=== PATIENT | female | born 1945 | race Caucasian/White ===

== ENCOUNTER 2017-03-27 11:57 | Inpatient (IN) | payer OTHER ==
[2017-03-23 08:44] LABS: HEMATOCRIT 32.3 % (36.0-48.0); HEMOGLOBIN 10.4 g/dL (12.0-16.0)
[2017-03-23 08:50] LABS: ASCORBIC ACID (UR NOT ORDER) NEG (NEG); BILIRUBIN, URINE NEGATIVE (NEG); KETONE, URINE NEGATIVE (NEG); LEUKOCYTE ESTERASE(NOT OR LARGE (NEG); WBC (NOT ORDERED) (RFLEX) > 182 (0-5)
[2017-03-23 09:02] LABS: BUN (BLOOD UREA NITROGEN) 28 MG/DL (6-23); CALCIUM, SERUM 8.6 MG/DL (8.5-10.4); CHLORIDE, SERUM 108 MMOL/L (96-112); CO2 (CARBON DIOXIDE) 29 MMOL/L (24-34); CREATININE 1.15 MG/DL (0.55-1.02); GFR AFRICAN AMERICAN 56 ML/MIN (>=60); GFR NON AFRICAN AMERICAN 49 ML/MIN (>=60); GLUCOSE, SERUM 81 MG/DL (60-99); SODIUM, SERUM 144 MMOL/L (135-148)
--- NOTE | ~2017-03-27 | DS ---
Discharge Summary [facility] [address] [place]. [address] NAME: JESSICA MARY : 49 STATUS : DIS IN PAT#: [id number] AGE: 71 ADM/REG DATE : 03/27/17 MR#: [id number] REPORT SERV DATE: 04/13/17 DICTATED BY: TY QUAN JR. DATE: 04/13/17 REPORT STATUS : Draft TRANSCRIBED BY: BRAN DATE: 04/13/17 Data Collection from hospitalization DISCHARGE DIAGNOSES: 1. Left renal pelvic stone, status post placement of PCN in the upper pole, partially obstructed collecting system. 2. Hypertension. 3. History of stage IV throat cancer. 4. Hiatal hernia. 5. Acid reflux. 6. Arthritis. 7. Former smoker. 8. Hypercholesterolemia. 9. Gastroesophageal reflux disease. 10.Sepsis of urinary origin. CONSULTATION: None. PROCEDURES PERFORMED: 1. Left renal access for PCN on 03/27/2017. 2. CT scan of the abdomen and pelvis without contrast on 03/29/2017. MEDICATIONS: Vitamin D 1000 units daily, Cipro 500 mg every 12 hours, vitamin B12 1000 mg daily, Prinzide one tablet daily, multivitamins one tablet daily, Prilosec 40 mg daily, Percocet 5/325 one to two tablets every four hours as needed, Pravachol 40 mg daily, and vitamin A one tablet daily. CONDITION AT DISCHARGE: Stable. DISPOSITION: The patient was discharged home on a regular diet with activities as instructed. She would follow up with me on 04/05/2017. HOSPITAL COURSE: This is a 71-year-old female who has a large left renal pelvis stone, this was incidentally found during a recent hospitalization. 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 She had completed radiation treatments. She has no known prior history of renal calculi. Urinalysis was positive for trace protein, large leukocyte, nitrite positive, and moderate blood. It was felt that the patient would need to undergo PCNL. She was admitted to the hospital at this time for further evaluation and treatment. Upon admission, the patient underwent the above-mentioned procedure. She tolerated this well, and there were no complications. The following day, her T-max was 101.5. She had no complaints. Her urine was bloody. Urine culture was positive. She had been started on Levaquin. On 03/29/2017, she had no new complaints except for some soreness in her back. White count had increased to 22.4. The patient was felt to have sepsis of urinary origin. She was transferred to the [facility]. A CT scan of the abdomen and pelvis without contrast was performed. Rocephin was added to her regimen. Vargas catheter was in place. She was started on electrolyte protocol. Discharge planning was performed. On 03/30/2017, she had Discharge Summary [facility] [id number] [place]. [address] NAME: JESSICA MARY : 49 STATUS : DIS IN PAT#: [id number] AGE: 71 ADM/REG DATE : 03/27/17 MR#: [id number] REPORT SERV DATE: 04/13/17 DICTATED BY: TY QUAN JR. DATE: 04/13/17 REPORT STATUS : Draft TRANSCRIBED BY: BRAN DATE: 04/13/17 no complaints. She was afebrile. She was off O2. Creatinine was 2.34. She was voiding without the Vargas catheter. Her CT scan had been negative. Plans were made for the patient to undergo PCN the following week. Discharge instructions were given. Due to her improved and stable condition, she was discharged home with the above-stated instructions. Information collected by: Lisa Hyatt I submit the above information as my discharge summary. JORDI/BRAN Ty Quan Jr., M.D. / [id number] CC: Noe Delatorre Jr., PAUL E
[~2017-03-27 11:57] MED LIST: ATV.5; CHEMO-THERAPY; COMP10B PO; CYANO1000T PO; DEX4 PO; FLUCON1 PO; LEVOTHYROXIN50 MCG PO; LOM PO; MAGIC MOUTHWASH PO; MULTIPLE VIT PO; MULTIVITAMI1 PO; NEXIUM40 PO; NORV10 PO; PRAVACHOL40 MG PO; PRILOSEC40 MG PO; PRINZIDE1 TA1 PO; VITAMIN A PO; VITAMIN D1000 UNI1 PO; ZESTORETIC PO; ZOFRAN8 PO
[2017-03-27 12:39] LABS: BASOPHILS 0.4 %; BASOPHILS ABSOLUTE 0.02 10/3/uL (0.0-0.16); EOSINOPHILS 1.4 %; EOSINOPHILS ABSOLUTE 0.07 10/3/uL (0.0-0.53); HEMOGLOBIN 11.6 g/dL (12.0-16.0); IMMATURE GRANULOCYTES 0.2 %; IMMATURE GRANULOCYTES ABSOLUTE 0.01 10/3/uL (0.0-0.11); LYMPHOCYTES 11.4 %; LYMPHOCYTES ABSOLUTE 0.56 10/3/uL (0.67-4.30); MEAN CORPUSCULAR HEMOGLOB 28.2 pg (26.0-34.0); MEAN CORPUSCULAR VOLUME 88.1 fL (80-100); MEAN PLATELET VOLUME 8.9 fL (9.2-13.0); MONOCYTES 6.5 %; MONOCYTES ABSOLUTE 0.32 10/3/uL (0.21-1.20); NEUTROPHILS 80.1 %; NEUTROPHILS ABSOLUTE 3.92 10/3/uL (2.02-8.40); PLATELET COUNT 157 10/3/uL (150-400); RED CELL COUNT 4.11 10/6/uL (4.0-5.6)
[2017-03-27 12:40] LABS: HEMATOCRIT 36.2 % (36.0-48.0); MANUAL DIFF NO %; WHITE BLOOD CELLS 4.9 10/3/uL (4.5-10.5)
[2017-03-27 12:45] LABS: INTERNATIONAL NORMAL RATI 1.1 UNITS (-); PARTIAL THROMBO TIME 31.6 SEC (22.5-37.2); PROTIME (NOT ORD) 13.9 SEC (12.0-14.5)
[2017-03-27 12:52] LABS: BUN (BLOOD UREA NITROGEN) 29 MG/DL (6-23); CALCIUM, SERUM 9.3 MG/DL (8.5-10.4); CHLORIDE, SERUM 107 MMOL/L (96-112); CO2 (CARBON DIOXIDE) 27 MMOL/L (24-34); CREATININE 1.21 MG/DL (0.55-1.02); GFR AFRICAN AMERICAN 53 ML/MIN (>=60); GFR NON AFRICAN AMERICAN 46 ML/MIN (>=60); GLUCOSE, SERUM 84 MG/DL (60-99); SODIUM, SERUM 140 MMOL/L (135-148)
[2017-03-27 12:54] LABS: POTASSIUM, SERUM 3.9 MMOL/L (3.5-5.3)
[2017-03-29 03:46] LABS: HEMATOCRIT 27.3 % (36.0-48.0); HEMOGLOBIN 9.2 g/dL (12.0-16.0); MANUAL DIFF YES %; MEAN CORPUS HGB CONC 33.7 g/dL (32.0-36.0); MEAN CORPUSCULAR HEMOGLOB 29.5 pg (26.0-34.0); MEAN CORPUSCULAR VOLUME 87.5 fL (80-100); MEAN PLATELET VOLUME 10.8 fL (9.2-13.0); PLATELET COUNT 67 10/3/uL (150-400); RBC DISTRIBUTION WIDTH 14.5 % (12.0-16.0); RED CELL COUNT 3.12 10/6/uL (4.0-5.6); WHITE BLOOD CELLS 22.4 10/3/uL (4.5-10.5)
[2017-03-29 04:01] LABS: CHLORIDE, SERUM 110 MMOL/L (96-112); POTASSIUM, SERUM 4.3 MMOL/L (3.5-5.3); SODIUM, SERUM 141 MMOL/L (135-148)
[2017-03-29 04:06] LABS: BUN (BLOOD UREA NITROGEN) 56 MG/DL (6-23); CALCIUM, SERUM 6.8 MG/DL (8.5-10.4); CO2 (CARBON DIOXIDE) 19 MMOL/L (24-34); CREATININE 3.13 MG/DL (0.55-1.02); GFR AFRICAN AMERICAN 17 ML/MIN (>=60); GFR NON AFRICAN AMERICAN 14 ML/MIN (>=60); GLUCOSE, SERUM 63 MG/DL (60-99)
[2017-03-29 04:08] LABS: BAND NEUTROPHILS 21 %; IMMATURE GRANS ABSOLUTE (CALC) 0.45 10/3/uL (0.0-0.11); METAMYELOCYTES 2 %; MONOCYTES 5 %; MONOCYTES ABSOLUTE (CALC) 1.12 10/3/uL (0.21-1.20); NEUTROPHILS ABSOLUTE (CALC) 20.83 10/3/uL (2.02-8.40); PLATELET ESTIMATE DEC (ADEQUATE); RBC MORPHOLOGY NORM (NORMAL); SEGMENTED NEUTROPHIL (0) 72 %; TOTAL NUCLEATED CELLS 100
[2017-03-29 09:14] LABS: PHOSPHORUS, SERUM 5.1 MG/DL (2.5-4.5)
[2017-03-30 05:07] LABS: HEMATOCRIT 26.3 % (36.0-48.0); HEMOGLOBIN 8.8 g/dL (12.0-16.0); MEAN CORPUS HGB CONC 33.5 g/dL (32.0-36.0); MEAN CORPUSCULAR HEMOGLOB 29.2 pg (26.0-34.0); MEAN CORPUSCULAR VOLUME 87.4 fL (80-100); PLATELET COUNT 62 10/3/uL (150-400); RBC DISTRIBUTION WIDTH 14.6 % (12.0-16.0); RED CELL COUNT 3.01 10/6/uL (4.0-5.6); WHITE BLOOD CELLS 19.7 10/3/uL (4.5-10.5)
[2017-03-30 05:09] LABS: MANUAL DIFF YES %
[2017-03-30 05:18] LABS: BUN (BLOOD UREA NITROGEN) 59 MG/DL (6-23); CALCIUM, SERUM 7.1 MG/DL (8.5-10.4); CHLORIDE, SERUM 114 MMOL/L (96-112); CO2 (CARBON DIOXIDE) 17 MMOL/L (24-34); GFR AFRICAN AMERICAN 24 ML/MIN (>=60); GFR NON AFRICAN AMERICAN 21 ML/MIN (>=60); GLUCOSE, SERUM 54 MG/DL (60-99); POTASSIUM, SERUM 3.7 MMOL/L (3.5-5.3); SODIUM, SERUM 144 MMOL/L (135-148)
[2017-03-30 05:19] LABS: CREATININE 2.34 MG/DL (0.55-1.02)
[2017-03-30 05:33] LABS: BAND NEUTROPHILS 19 %; IMMATURE GRANS ABSOLUTE (CALC) 0.79 10/3/uL (0.0-0.11); LYMPHOCYTES 2 %; LYMPHOCYTES ABSOLUTE (CALC) 0.39 10/3/uL (0.67-4.30); METAMYELOCYTES 4 %; MONOCYTES 5 %; MONOCYTES ABSOLUTE (CALC) 0.99 10/3/uL (0.21-1.20); NEUTROPHILS ABSOLUTE (CALC) 17.53 10/3/uL (2.02-8.40); RBC MORPHOLOGY NORM (NORMAL); SEGMENTED NEUTROPHIL (0) 70 %; TOTAL NUCLEATED CELLS 100
[2017-03-30] MEDS ORDERED: CIP5 PO (18:43)
[2017-03-30] MEDS ORDERED: PCET PO (18:45)
[2017-04-06] MEDS ORDERED: NORCO1 TA2 PO (11:37)
== END 2017-03-30 20:30 | disposition home or self-care (01) | DRG 659 ==
LOC: IMGHOLD 11:57 → RADHOLD 12:03 → SSU1 17:42 → IMCU 03-29 14:34 → 5SO 03-30 18:18
PROVIDERS: Anesthesiology; Urology
PROC: 0TC43ZZ Extirpation of Matter from Left Kidney Pelvis, Percutaneous Approach (ICD-10-PCS; principal; 2017-03-27)
DX: N20.0 Calculus of kidney (principal); A41.9 Sepsis, unspecified organism; N39.0 Urinary tract infection, site not specified; Z53.09 Procedure and treatment not carried out because of other contraindication; I10 Essential (primary) hypertension; K44.9 Diaphragmatic hernia without obstruction or gangrene; K21.9 Gastro-esophageal reflux disease without esophagitis; Z90.49 Acquired absence of other specified parts of digestive tract; Z87.891 Personal history of nicotine dependence; Z79.899 Other long term (current) drug therapy; Z98.890 Other specified postprocedural states; Z85.01 Personal history of malignant neoplasm of esophagus
CPT/HCPCS: 36415; 50432; 50695; 74000; 74176; 80048; 81001; 82330; 83735; 84100; 85014; 85018; 85025; 85610; 85730; 86850; 86870; 86900; 86901; 86905; 86920; 86922; 87040; 87077; 87086; 87186; 93005; A9270-GY; C1729; C1769; C1887; C1894; J0610; J1956; J2250; J2270; J2405; J3010; J3475; Q9967